=== PATIENT | female | born 1970 | race Caucasian/White ===

== ENCOUNTER 2018-07-31 17:30 | Emergency (ER) | payer BC ==
[2018-07-31] MEDS ORDERED: diphenhydrAMINE 50 MG/ML VIAL ONE (17:58)
[2018-07-31] MEDS ORDERED: Ketorolac Tromethamine 30 MG/ML VIAL ONE (17:58)
[2018-07-31] MEDS ORDERED: Magnesium Sulfate 2 GM/NS 0.9% 50 ML BAG ONE (17:59)
[2018-07-31] MEDS ORDERED: Prochlorperazine 10 MG/2 ML VIAL ONE (18:00)
== END 2018-07-31 19:10 | disposition home or self-care (01) ==
LOC: NAV ERS 17:30
DX: G43.909 Migraine, unspecified, not intractable, without status migrainosus (principal); E03.9 Hypothyroidism, unspecified; Z79.899 Other long term (current) drug therapy
CPT/HCPCS: 99283; J0780; J1200; J1885; J3475

== ENCOUNTER 2021-06-05 11:34 | Emergency (ER) | payer OTHER ==
[2021-06-05] MEDS ORDERED: Ondansetron ODT 4 MG TAB ONE (11:50)
[2021-06-05] MEDS ORDERED: Ketorolac Tromethamine 30 MG/ML VIAL ONE (11:59)
[2021-06-05] MEDS ORDERED: Metoclopramide HCl 10 MG/2 ML VIAL ONE (11:59)
[2021-06-05] MEDS ORDERED: diphenhydrAMINE 50 MG/ML VIAL ONE (11:59)
== END 2021-06-05 12:35 | disposition home or self-care (01) ==
LOC: NAV ERS 11:34
DX: G43.909 Migraine, unspecified, not intractable, without status migrainosus (principal); R11.2 Nausea with vomiting, unspecified; Z79.899 Other long term (current) drug therapy
CPT/HCPCS: 96372; 99283; J1200; J1885; J2765; Q0162

== ENCOUNTER 2021-11-15 07:50 | Emergency (ER) | payer OTHER, MEDICARE ==
[2021-11-15] MEDS ORDERED: Ondansetron ODT 4 MG TAB ONE (08:31)
[2021-11-15] MEDS ORDERED: Metoclopramide HCl 10 MG/2 ML VIAL ONE (08:31)
[2021-11-15] MEDS ORDERED: Ketorolac Tromethamine 60 MG/2 ML VIAL ONE (08:31)
[2021-11-15] MEDS ORDERED: diphenhydrAMINE 50 MG/ML VIAL ONE (08:31)
== END 2021-11-15 08:57 | disposition home or self-care (01) ==
LOC: NAV ERS 07:50
DX: G43.909 Migraine, unspecified, not intractable, without status migrainosus (principal); E03.9 Hypothyroidism, unspecified; Z79.899 Other long term (current) drug therapy
CPT/HCPCS: 96372; 99283; J1200; J1885; J2765; Q0162

== ENCOUNTER 2021-11-30 09:40 | Emergency (ER) | payer OTHER, MEDICARE ==
[2021-11-30] MEDS ORDERED: Sodium Chloride 0.9% 1,000 ML ONE (11:54)
[2021-11-30] MEDS ORDERED: Ketorolac Tromethamine 30 MG/ML VIAL ONE (11:56)
[2021-11-30] MEDS ORDERED: Metoclopramide HCl 10 MG/2 ML VIAL ONE ×2 (11:56→13:25)
[2021-11-30] MEDS ORDERED: diphenhydrAMINE 50 MG/ML VIAL ONE (11:56)
[2021-11-30 12:00] LABS: #Basophils 0.1 thou/uL (0.0-0.2); #Lymphocytes 0.4 thou/uL (1.20-3.40); #Monocytes 0.6 thou/uL (0.11-0.59); #Neutrophils 3.2 thou/uL (1.40-6.50); %Basophils 1.5 % (0.0-1.0); %Eosinophils 0.3 % (0.0-10.0); %Lymphocytes 9.4 % (21.0-51.0); %Monocytes 14.6 % (0.0-10.0); %Neutrophils 74.2 % (42.0-75.0); Hemoglobin 15.3 g/dL (12.0-16.0); Mean Corpuscular HGB CONC 32.1 g/dL (32.0-36.0); Mean Corpuscular Volume 93.5 fL (78.0-98.0); Mean Platelet Volume 7.3 fL (7.4-10.4); Platelet Count 244 thou/uL (130-400); RBC Distribution Width 12.6 % (11.5-14.5); White Blood Cell (WBC) Count 4.4 thou/uL (4.8-10.8)
[2021-11-30 12:12] LABS: Anion Gap 13 mmol/L (10-20); BUN (Urea Nitrogen) 6 mg/dL (7.0-18.7); Calc. Creatinine Clearance 0 mL/min (70-130); Calcium 9.2 mg/dL (7.8-10.44); Carbon Dioxide 24 mmol/L (22-29); Chloride 105 mmol/L (98-107); Glucose 92 mg/dL (70-105); Potassium 3.8 mmol/L (3.5-5.1); Sodium 138 mmol/L (136-145)
[2021-11-30] MEDS ORDERED: Sodium Chloride 0.9% 100 ML ONE (13:30)
== END 2021-11-30 14:07 | disposition home or self-care (01) ==
LOC: NAV ERS 09:40
DX: G43.909 Migraine, unspecified, not intractable, without status migrainosus (principal); E03.9 Hypothyroidism, unspecified
CPT/HCPCS: 80048; 85025; 96374; 96375; 96376; J1200; J1885; J2765; J7050

== ENCOUNTER 2021-12-22 09:33 | Emergency (ER) | payer OTHER, MEDICARE ==
[2021-12-22] MEDS ORDERED: Metoclopramide HCl 10 MG/2 ML VIAL ONE (10:56)
[2021-12-22] MEDS ORDERED: Ketorolac Tromethamine 30 MG/ML VIAL ONE (10:56)
[2021-12-22] MEDS ORDERED: diphenhydrAMINE 50 MG/ML VIAL ONE (10:56)
[2021-12-22] MEDS ORDERED: methylPREDNISolone Sod Succ/PF 125 MG/2 ML VIAL ONE (12:06)
== END 2021-12-22 12:52 | disposition home or self-care (01) ==
LOC: NAV ERS 09:33
DX: G43.909 Migraine, unspecified, not intractable, without status migrainosus (principal); E03.9 Hypothyroidism, unspecified; E06.3 Autoimmune thyroiditis; Z79.899 Other long term (current) drug therapy
CPT/HCPCS: 96365; 96375; J1200; J1885; J2765; J2930

== ENCOUNTER 2022-02-25 17:28 | Emergency (ER) | payer OTHER, MEDICARE ==
[2022-02-25] MEDS ORDERED: Sodium Chloride 0.9% 1,000 ML ONE (17:52)
[2022-02-25] MEDS ORDERED: Ondansetron PF 4 MG/2 ML Vial ONE (17:52)
[2022-02-25] MEDS ORDERED: diphenhydrAMINE 50 MG/ML VIAL ONE (18:15)
[2022-02-25] MEDS ORDERED: Ketorolac Tromethamine 30 MG/ML VIAL ONE (18:15)
== END 2022-02-25 19:15 | disposition home or self-care (01) ==
LOC: NAV ERS 17:28
DX: G43.909 Migraine, unspecified, not intractable, without status migrainosus (principal); G89.29 Other chronic pain; E03.9 Hypothyroidism, unspecified; M32.9 Systemic lupus erythematosus, unspecified; E06.3 Autoimmune thyroiditis; Z79.899 Other long term (current) drug therapy
CPT/HCPCS: 96374; 96375; J1200; J1885; J2405; J7050